=== PATIENT | female | born 1970 | race Caucasian/White ===

== ENCOUNTER 2019-06-17 13:11 | Emergency (ER) | payer MEDICARE, MEDICAID, SELFPAY ==
[2019-06-17 13:24] VITALS: BP 181/88; PULSE 103; RESP 18; TEMP 36.9; O2SAT 97; BMI 27.2
--- NOTE | 2019-06-17 14:11 | PC.NURSE ---
Patient declines POC glucose.
[2019-06-17 14:20] LABS: Add Manual Diff / Slide Review NO; Basophils Absolute Auto 0 /uL (0-100); Basophils Percent Auto 0.2 % (0-2); Eosinophils Absolute Auto 0 /uL (0-450); Hematocrit 39.5 % (36-46); Hemoglobin 13.6 g/dL (12.0-16.0); Lymphocytes Absolute Auto 1400 /uL (1100-4500); Lymphocytes Percent Auto 18.1 % (25-40); Mean Corpuscular HGB Conc 34.4 % (30-36); Mean Corpuscular Hemoglobin 31.8 PG (26-34); Mean Corpuscular Volume 92.4 fL (80-100); Monocytes Absolute Auto 500 /uL (0-900); Monocytes Percent Auto 6.4 % (3-14); Neutrophils Absolute Auto 5900 /uL (1500-7000); Neutrophils Percent Auto 75.3 % (50-75); Platelet Count 258 X10^3/uL (150-400); Red Blood Cell Count 4.27 X10^6/uL (4.0-5.2); Red Cell Distribution Width 13.1 % (11.6-14.8); White Blood Cell Count 7.8 X10^3/uL (4.5-11.0)
[2019-06-17 14:25] LABS: Alanine Aminotransferase 14 IU/L (<35); Albumin 4.1 g/dL (3.5-5.0); Albumin Globulin Ratio 1.4 (1.0-2.8); Alkaline Phosphatase 86 U/L (38-126); Aspartate Aminotransferase 19 IU/L (14-36); Bilirubin Total 0.5 mg/dL (0.2-1.3); Blood Urea Nitrogen 6 mg/dL (7-17); Calcium 9.4 mg/dL (8.4-10.2); Carbon Dioxide 22 mmol/L (22-32); Chloride 107 mmol/L (98-107); Estimated Glomerular Filt Rate > 60.0 mL/min (>60); Ethanol (ETOH) < 10 mg/dL; Glucose 116 mg/dL (70-100); HEMOLYSIS < 15 (0-50); Potassium 3.6 mmol/L (3.4-5.1); Sodium 141 mmol/L (137-145); Total Protein 7.1 g/dL (6.3-8.2)
--- NOTE | 2019-06-17 14:28 | ED_ITS ---
HPI - Neck Pain/Injury <Earl Mckeon DO - Last Filed: 06/17/19 20:00> General Chief Complaint: Neck Pain/Injury Stated Complaint: Head and neck pain Time Seen by Provider: 06/17/19 13:12 Source: EMS Mode of arrival: EMS Limitations: no limitations History of Present Illness HPI Narrative: 49-year-old female with developmental delay and schizophrenia presents by EMS for evaluation at the request of her managing facility. The patient has had episodes of refusing to take her medications and apparently earlier today was found wandering in a local store. The patient has no current complaints and has been very calm and comfortable with the paramedics. She was recently admitted at [facility] for attempted stabilization of her medications as she was (per the staff) acting nonsensically and refusing to take her medications. She has had no fever or chills. She has no vomiting or diarrhea. She has no complaints of dizziness or lightheadedness. She does have a chronic history of right-sided neck pain and states that on occasion it is hurting she denies any falls or injuries MD complaint: neck pain Onset (ago): day(s) Place: home Radiation: right lateral Duration: intermittent and now resolved Relieving factors: none Exacerbating factors: none Associated symptoms: none Treatments prior to arrival: none Related Data Home Medications Medication Instructions Recorded Confirmed clozapine 25 mg PO TID 06/18/19 06/18/19 clozapine 100 mg PO TID 06/18/19 06/18/19 Review of Systems <DO Colette Gaytan Last Filed: 06/17/19 20:00> Constitutional Constitutional: Denies chills, Denies fatigue, Denies fever(s), Denies frequent falls, Denies lethargy and Denies weakness Eyes Eyes: Denies change in vision, Denies eye discharge, Denies irritation and Denies loss of vision ENT Ears, Nose, Mouth, and Throat: Denies change in voice, Denies dizziness, Reports neck pain, Denies sore throat and Denies throat swelling Cardiovascular Cardiovascular: Denies chest pain, Denies irregular heart rhythm, Denies lightheadedness, Denies palpitations, Denies dyspnea, Denies dyspnea on exertion and Denies orthopnea Respiratory Respiratory: Denies cough, Denies dyspnea, Denies dyspnea on exertion and Denies wheezing Gastrointestinal Gastrointestinal: Denies abdominal pain, Denies change in bowel habits, Denies diarrhea, Denies nausea and Denies vomiting Genitourinary Genitourinary: Denies hematuria, Denies flank pain, Denies urinary incontinence and Denies urinary urgency Musculoskeletal Musculoskeletal: Denies back pain, Denies muscle weakness, Reports neck pain, Denies numbness and Denies tingling Integumentary/Breasts Skin/Breast: Denies pruritus, Denies erythema, Denies rash and Denies wounds Neurologic Neurologic: Denies behavioral changes, Denies confusion, Denies dizziness, Denies frequent falls, Denies loss of vision, Denies numbness, Denies tingling and Denies weakness Psychiatric Psychiatric: Denies anxiety, Denies behavioral changes, Denies confusion, Denies depression, Denies homicidal ideation and Denies suicidal ideation Endocrine Endocrine: Denies fatigue, Denies flushing and Denies palpitations Hematologic/Lymphatic Hematologic/Lymphatic: Denies easy bruising Allergic/Immunologic Allergic/Immunologic: Denies urticaria, Denies throat swelling and Denies wheezing Patient History <Earl Mckeon DO - Last Filed: 06/17/19 20:00> Medical History (Updated 06/18/19 @ 18:50 by Josselyn Joyce DO) alcohol syndrome (Acute) PTSD (post-traumatic stress disorder) (Acute) Schizoaffective disorder (Acute) Torticollis (Acute) Social History Smoking Status: Never smoker Smoking Status: Never smoker alcohol intake frequency: holidays/special occasions only Substance Use Type: does not use Exam <Earl Mckeon DO - Last Filed: 06/17/19 20:00> Narrative Exam Narrative: GENERAL: [49] year old patient appears stated age. Well- nourished, well-developed patient, in no obvious distress. SLow but accurate responses HEAD: Atraumatic. Normocephalic. EYES: Pupils equal round and reactive. Extraocular motions intact. No scleral icterus. No injection or drainage. ENT: Nose without bleeding, purulent drainage. Throat without erythema, tonsillar hypertrophy or exudate. Airway patent. NECK: Trachea midline. Non tender CARDIOVASCULAR: Regular rate and rhythm without murmurs, gallops, or rubs. RESPIRATORY: Clear to auscultation. Breath sounds equal bilaterally. No wheezes, rales, or rhonchi. GASTROINTESTINAL: Abdomen soft, non-tender, nondistended. EXTREMITIES: No edema or joint tenderness. BACK: Nontender without deformity or crepitance. No flank tenderness. NEURO: AOx3. SKIN: No rash or erythema of visible areas Initial Vital Signs Initial Vital Signs: Vital Signs Temperature 98.4 F 06/17/19 13:24 Pulse Rate 103 H 06/17/19 13:24 Respiratory Rate 18 06/17/19 13:24 Blood Pressure 181/88 H 06/17/19 13:24 Pulse Oximetry 97 06/17/19 13:24 <Madelyn Hutton MD - Last Filed: 06/18/19 01:19> Initial Vital Signs Initial Vital Signs: Vital Signs Temperature 98.4 F 06/17/19 13:24 Pulse Rate 103 H 06/17/19 13:24 Respiratory Rate 18 06/17/19 13:24 Blood Pressure 181/88 H 06/17/19 13:24 Pulse Oximetry 97 06/17/19 13:24 <Josselyn Joyce DO - Last Filed: 06/19/19 07:43> Initial Vital Signs Initial Vital Signs: Vital Signs Temperature 98.4 F 06/17/19 13:24 Pulse Rate 103 H 06/17/19 13:24 Respiratory Rate 18 06/17/19 13:24 Blood Pressure 181/88 H 06/17/19 13:24 Pulse Oximetry 97 06/17/19 13:24 <Stuart Helm DO - Last Filed: 06/19/19 03:38> Initial Vital Signs Initial Vital Signs: Vital Signs Temperature 98.4 F 06/17/19 13:24 Pulse Rate 103 H 06/17/19 13:24 Respiratory Rate 18 06/17/19 13:24 Blood Pressure 181/88 H 06/17/19 13:24 Pulse Oximetry 97 06/17/19 13:24 Course <Earl Mckeon DO - Last Filed: 06/17/19 20:00> Course Course Narrative: Patient is resting comfortably and denies any pain, suicidal or homicidal ideations. We are attempting to obtain her home medications as her antipsychotic is not available at our pharmacy. We have received a call from the patient's advocate and she has not a candidate for involuntary psychiatric admission at this point time, will likely keep overnight and have an evaluation by HOME VISITS NURSE in the morning. This patient has been signed out to Dr. Hutton for [facility] management Orders Ordered: Stored In Pharmacy 0 each PO . [facility] Clozapine 125 Mg 125 mg PO TID [facility] Last Admin: 06/18/19 21:17 Dose: 125 mg Documented by: Admin: 06/18/19 21:17 Dose: Not Given Documented by: Admin: 06/18/19 13:32 Dose: 125 mg Documented by: CPRUITT Vital Signs Vital signs: Vital Signs - 8 hr 06/19/19 00:08 Temperature 98.1 F Pulse Rate 100 H Respiratory Rate 16 Blood Pressure [Left Arm] 137/86 Pulse Oximetry 96 <Madelyn Hutton MD - Last Filed: 06/18/19 01:19> Course Course Narrative: 06/17/2019 20:00 Care is assumed. Patient has a diagnosis of alcohol syndrome, schizoaffective disorder and PTSD. Apparently was living in a group family home and was acting out with difficulties medicating her. She was recently at [facility] in the were unable to find additional placement for her. Previously she had been on clozapine 100 mg in the morning 200 mg in the evening. On June 15 this was shifted to clozapine 125 mg 3 times a day. The group family home does have her home meds and will make them available for us to administer. We do not currently have clozapine on the formulary at [facility]. Repeat medical records are obtained and chart is updated. Will need social work to again get involved tomorrow to help find placement for this young woman. She has been quite and cooperative during the evening Orders Ordered: Stored In Pharmacy 0 each PO . [facility] Clozapine 125 Mg 125 mg PO TID [facility] Last Admin: 06/18/19 21:17 Dose: 125 mg Documented by: Admin: 06/18/19 21:17 Dose: Not Given Documented by: Admin: 06/18/19 13:32 Dose: 125 mg Documented by: CPRUITT Vital Signs Vital signs: Vital Signs - 8 hr 06/19/19 00:08 Temperature 98.1 F Pulse Rate 100 H Respiratory Rate 16 Blood Pressure [Left Arm] 137/86 Pulse Oximetry 96 <Josselyn Joyce DO - Last Filed: 06/19/19 07:43> Course Course Narrative: Patient signed out to myself by Dr. Hutton while awaiting further social work. senior living has her home medication and is supposed to be bringing it in for patient to take. Patient was evaluated by myself. She is cooperative at this time. States she has a little bit of shoulder pain but defers anything for pain medication states she also has a little bit of pain with urination. Urine was obtained yesterday was negative with no signs of infection. She describes being at [facility] last week and having straight catheterization which caused her initial discomfort. Patient is aware that her medication is supposed to be coming from home today and is comfortable taking it. We discussed if she would like anything for pain to let us know patient seems comfortable with this plan. She is also aware that social work is supposed to re-evaluate today. Social work saw patient. Spoke with guardian as well as caregivers plan is for patient to return if she is now taking her medication she does not have any suicidal ideation she has been cooperative the department without issues. Car egivers are coming to pick the patient up today. She is medically cleared otherwise. Patient caregivers are not available till 8am. They are planning to picker and sorter load and unload patient this morning around 8am. Orders Ordered: Stored In Pharmacy 0 each PO . [facility] Clozapine 125 Mg 125 mg PO TID [facility] Last Admin: 06/18/19 21:17 Dose: 125 mg Documented by: Admin: 06/18/19 21:17 Dose: Not Given Documented by: Admin: 06/18/19 13:32 Dose: 125 mg Documented by: KATHLEEN Vital Signs Vital signs: Vital Signs - 8 hr 06/19/19 00:08 Temperature 98.1 F Pulse Rate 100 H Respiratory Rate 16 Blood Pressure [Left Arm] 137/86 Pulse Oximetry 96 <Stuart Helm DO - Last Filed: 06/19/19 03:38> Orders Ordered: Stored In Pharmacy 0 each PO . [facility] Clozapine 125 Mg 125 mg PO TID [facility] Last Admin: 06/18/19 21:17 Dose: 125 mg Documented by: Admin: 06/18/19 21:17 Dose: Not Given Documented by: Admin: 06/18/19 13:32 Dose: 125 mg Documented by: CPRUITT Vital Signs Vital signs: Vital Signs - 8 hr 06/19/19 00:08 Temperature 98.1 F Pulse Rate 100 H Respiratory Rate 16 Blood Pressure [Left Arm] 137/86 Pulse Oximetry 96 MDM - Neck Pain/Injury <Earl Mckeon DO - Last Filed: 06/17/19 20:00> Lab Data Result diagrams: 06/17/19 14:07 06/17/19 14:07 Labs: Lab Results 06/17/19 06/17/19 06/17/19 Range/Units 13:40 13:40 14:07 WBC 7.8 (4.5-11.0) X10^3/uL RBC 4.27 (4.0-5.2) X10^6/uL Hgb 13.6 (12.0-16.0) g/dL Hct 39.5 (36-46) % MCV 92.4 (80-100) fL MCH 31.8 (26-34) PG MCHC 34.4 (30-36) % RDW 13.1 (11.6-14.8) % Plt Count 258 (150-400) X10^3/uL Neut % (Auto) 75.3 H (50-75) % Lymph % (Auto) 18.1 L (25-40) % [place] % (Auto) 6.4 (3-14) % Eos % (Auto) 0.0 L (2-4) % Baso % (Auto) 0.2 (0-2) % Neut # (Auto) 5900 (0115-6417) /uL Lymph # (Auto) 1400 (4992-1947) /uL [place] # (Auto) 500 (0-900) /uL Eos # (Auto) 0 (0-450) /uL Baso # (Auto) 0 (0-100) /uL Sodium (137-145) mmol/L Potassium (3.4-5.1) mmol/L Chloride (98-107) mmol/L Carbon Dioxide (22-32) mmol/L BUN (7-17) mg/dL Creatinine (0.52-1.04) mg/dL Estimated GFR (>60) mL/min BUN/Creatinine Ratio (6-22) Glucose (70-100) mg/dL Calcium (8.4-10.2) mg/dL Total Bilirubin (0.2-1.3) mg/dL AST (14-36) IU/L ALT (<35) IU/L Alkaline Phosphatase (38-126) U/L Total Protein (6.3-8.2) g/dL Albumin (3.5-5.0) g/dL Globulin (1.7-4.1) g/dL Albumin/Globulin Ratio (1.0-2.8) TSH (0.47-4.68) uIU/mL Urine RBC None seen (0-5/HPF) Urine WBC 1-5/hpf (0-5/HPF) Ur Squamous Epith Cells 5-10 /hpf H (0-5/HPF) Amorphous Sediment 1+ Urine Bacteria Few (2-10) H (None) Ur Culture Indicated? Cult not indicated U Opiates 300ng/mL cut Negative (Negative) Ur Oxycodone Screen Negative (Negative) Urine Methadone Screen Negative (Negative) Ur Barbiturates Screen Negative (Negative) U Tricyclic Antidepress Negative (Negative) Ur Phencyclidine Scrn Negative (Negative) Ur Amphetamines Screen Negative (Negative) U Methamphetamines Scrn Negative (Negative) Ur MDMA Scrn (Ecstasy) Negative (Negative) U Benzodiazepines Scrn Negative (Negative) Urine Cocaine Screen Negative (Negative) U Marijuana (THC) Screen Negative (Negative) Ethyl Alcohol ( - 10) mg/dL 06/17/19 06/17/19 Range/Units 14:07 14:07 WBC (4.5-11.0) X10^3/uL RBC (4.0-5.2) X10^6/uL Hgb (12.0-16.0) g/dL Hct (36-46) % MCV (80-100) fL MCH (26-34) PG MCHC (30-36) % RDW (11.6-14.8) % Plt Count (150-400) X10^3/uL Neut % (Auto) (50-75) % Lymph % (Auto) (25-40) % [place] % (Auto) (3-14) % Eos % (Auto) (2-4) % Baso % (Auto) (0-2) % Neut # (Auto) (9190-7271) /uL Lymph # (Auto) (0879-4813) /uL [place] # (Auto) (0-900) /uL Eos # (Auto) (0-450) /uL Baso # (Auto) (0-100) /uL Sodium 141 (137-145) mmol/L Potassium 3.6 (3.4-5.1) mmol/L Chloride 107 (98-107) mmol/L Carbon Dioxide 22 (22-32) mmol/L BUN 6 L (7-17) mg/dL Creatinine 0.60 (0.52-1.04) mg/dL Estimated GFR > 60.0 (>60) mL/min BUN/Creatinine Ratio 10.0 (6-22) Glucose 116 H (70-100) mg/dL Calcium 9.4 (8.4-10.2) mg/dL Total Bilirubin 0.5 (0.2-1.3) mg/dL AST 19 (14-36) IU/L ALT 14 (<35) IU/L Alkaline Phosphatase 86 (38-126) U/L Total Protein 7.1 (6.3-8.2) g/dL Albumin 4.1 (3.5-5.0) g/dL Globulin 3.0 (1.7-4.1) g/dL Albumin/Globulin Ratio 1.4 (1.0-2.8) TSH 0.92 (0.47-4.68) uIU/mL Urine RBC (0-5/HPF) Urine WBC (0-5/HPF) Ur Squamous Epith Cells (0-5/HPF) Amorphous Sediment Urine Bacteria (None) Ur Culture Indicated? U Opiates 300ng/mL cut (Negative) Ur Oxycodone Screen (Negative) Urine Methadone Screen (Negative) Ur Barbiturates Screen (Negative) U Tricyclic Antidepress (Negative) Ur Phencyclidine Scrn (Negative) Ur Amphetamines Screen (Negative) U Methamphetamines Scrn (Negative) Ur MDMA Scrn (Ecstasy) (Negative) U Benzodiazepines Scrn (Negative) Urine Cocaine Screen (Negative) U Marijuana (THC) Screen (Negative) Ethyl Alcohol < 10 ( - 10) mg/dL Urine Dip Bedside Urine Glucose Negative Bedside Urine Bilirubin - Negative Bedside Urine Ketone +++ 80 Bedside Urine Occult Blood - Negative Bedside Urine Protein - Negative Bedside Urine Urobilinogen - Negative Bedside Urine Nitrite - Negative Bedside Urine Leukocytes - Negative Esterase <Madelyn Hutton MD - Last Filed: 06/18/19 01:19> Medical Records Attestation: I reviewed the patient's medical records. Lab Data Attestation: I reviewed the patient's lab results. Labs: Lab Results 06/17/19 06/17/19 06/17/19 Range/Units 13:40 13:40 14:07 WBC 7.8 (4.5-11.0) X10^3/uL RBC 4.27 (4.0-5.2) X10^6/uL Hgb 13.6 (12.0-16.0) g/dL Hct 39.5 (36-46) % MCV 92.4 (80-100) fL MCH 31.8 (26-34) PG MCHC 34.4 (30-36) % RDW 13.1 (11.6-14.8) % Plt Count 258 (150-400) X10^3/uL Neut % (Auto) 75.3 H (50-75) % Lymph % (Auto) 18.1 L (25-40) % [place] % (Auto) 6.4 (3-14) % Eos % (Auto) 0.0 L (2-4) % Baso % (Auto) 0.2 (0-2) % Neut # (Auto) 5900 (4105-3174) /uL Lymph # (Auto) 1400 (9428-3878) /uL [place] # (Auto) 500 (0-900) /uL Eos # (Auto) 0 (0-450) /uL Baso # (Auto) 0 (0-100) /uL Sodium (137-145) mmol/L Potassium (3.4-5.1) mmol/L Chloride (98-107) mmol/L Carbon Dioxide (22-32) mmol/L BUN (7-17) mg/dL Creatinine (0.52-1.04) mg/dL Estimated GFR (>60) mL/min BUN/Creatinine Ratio (6-22) Glucose (70-100) mg/dL Calcium (8.4-10.2) mg/dL Total Bilirubin (0.2-1.3) mg/dL AST (14-36) IU/L ALT (<35) IU/L Alkaline Phosphatase (38-126) U/L Total Protein (6.3-8.2) g/dL Albumin (3.5-5.0) g/dL Globulin (1.7-4.1) g/dL Albumin/Globulin Ratio (1.0-2.8) TSH (0.47-4.68) uIU/mL Urine RBC None seen (0-5/HPF) Urine WBC 1-5/hpf (0-5/HPF) Ur Squamous Epith Cells 5-10 /hpf H (0-5/HPF) Amorphous Sediment 1+ Urine Bacteria Few (2-10) H (None) Ur Culture Indicated? Cult not indicated U Opiates 300ng/mL cut Negative (Negative) Ur Oxycodone Screen Negative (Negative) Urine Methadone Screen Negative (Negative) Ur Barbiturates Screen Negative (Negative) U Tricyclic Antidepress Negative (Negative) Ur Phencyclidine Scrn Negative (Negative) Ur Amphetamines Screen Negative (Negative) U Methamphetamines Scrn Negative (Negative) Ur MDMA Scrn (Ecstasy) Negative (Negative) U Benzodiazepines Scrn Negative (Negative) Urine Cocaine Screen Negative (Negative) U Marijuana (THC) Screen Negative (Negative) Ethyl Alcohol ( - 10) mg/dL 06/17/19 06/17/19 Range/Units 14:07 14:07 WBC (4.5-11.0) X10^3/uL RBC (4.0-5.2) X10^6/uL Hgb (12.0-16.0) g/dL Hct (36-46) % MCV (80-100) fL MCH (26-34) PG MCHC (30-36) % RDW (11.6-14.8) % Plt Count (150-400) X10^3/uL Neut % (Auto) (50-75) % Lymph % (Auto) (25-40) % [place] % (Auto) (3-14) % Eos % (Auto) (2-4) % Baso % (Auto) (0-2) % Neut # (Auto) (2167-6584) /uL Lymph # (Auto) (1872-8392) /uL [place] # (Auto) (0-900) /uL Eos # (Auto) (0-450) /uL Baso # (Auto) (0-100) /uL Sodium 141 (137-145) mmol/L Potassium 3.6 (3.4-5.1) mmol/L Chloride 107 (98-107) mmol/L Carbon Dioxide 22 (22-32) mmol/L BUN 6 L (7-17) mg/dL Creatinine 0.60 (0.52-1.04) mg/dL Estimated GFR > 60.0 (>60) mL/min BUN/Creatinine Ratio 10.0 (6-22) Glucose 116 H (70-100) mg/dL Calcium 9.4 (8.4-10.2) mg/dL Total Bilirubin 0.5 (0.2-1.3) mg/dL AST 19 (14-36) IU/L ALT 14 (<35) IU/L Alkaline Phosphatase 86 (38-126) U/L Total Protein 7.1 (6.3-8.2) g/dL Albumin 4.1 (3.5-5.0) g/dL Globulin 3.0 (1.7-4.1) g/dL Albumin/Globulin Ratio 1.4 (1.0-2.8) TSH 0.92 (0.47-4.68) uIU/mL Urine RBC (0-5/HPF) Urine WBC (0-5/HPF) Ur Squamous Epith Cells (0-5/HPF) Amorphous Sediment Urine Bacteria (None) Ur Culture Indicated? U Opiates 300ng/mL cut (Negative) Ur Oxycodone Screen (Negative) Urine Methadone Screen (Negative) Ur Barbiturates Screen (Negative) U Tricyclic Antidepress (Negative) Ur Phencyclidine Scrn (Negative) Ur Amphetamines Screen (Negative) U Methamphetamines Scrn (Negative) Ur MDMA Scrn (Ecstasy) (Negative) U Benzodiazepines Scrn (Negative) Urine Cocaine Screen (Negative) U Marijuana (THC) Screen (Negative) Ethyl Alcohol < 10 ( - 10) mg/dL Urine Dip Bedside Urine Glucose Negative Bedside Urine Bilirubin - Negative Bedside Urine Ketone +++ 80 Bedside Urine Occult Blood - Negative Bedside Urine Protein - Negative Bedside Urine Urobilinogen - Negative Bedside Urine Nitrite - Negative Bedside Urine Leukocytes - Negative Esterase <Josselyn Joyce DO - Last Filed: 06/19/19 07:43> Lab Data Attestation: I reviewed the patient's lab results. Labs: Lab Results 06/17/19 06/17/19 06/17/19 Range/Units 13:40 13:40 14:07 WBC 7.8 (4.5-11.0) X10^3/uL RBC 4.27 (4.0-5.2) X10^6/uL Hgb 13.6 (12.0-16.0) g/dL Hct 39.5 (36-46) % MCV 92.4 (80-100) fL MCH 31.8 (26-34) PG MCHC 34.4 (30-36) % RDW 13.1 (11.6-14.8) % Plt Count 258 (150-400) X10^3/uL Neut % (Auto) 75.3 H (50-75) % Lymph % (Auto) 18.1 L (25-40) % [place] % (Auto) 6.4 (3-14) % Eos % (Auto) 0.0 L (2-4) % Baso % (Auto) 0.2 (0-2) % Neut # (Auto) 5900 (1658-6032) /uL Lymph # (Auto) 1400 (7210-9246) /uL [place] # (Auto) 500 (0-900) /uL Eos # (Auto) 0 (0-450) /uL Baso # (Auto) 0 (0-100) /uL Sodium (137-145) mmol/L Potassium (3.4-5.1) mmol/L Chloride (98-107) mmol/L Carbon Dioxide (22-32) mmol/L BUN (7-17) mg/dL Creatinine (0.52-1.04) mg/dL Estimated GFR (>60) mL/min BUN/Creatinine Ratio (6-22) Glucose (70-100) mg/dL Calcium (8.4-10.2) mg/dL Total Bilirubin (0.2-1.3) mg/dL AST (14-36) IU/L ALT (<35) IU/L Alkaline Phosphatase (38-126) U/L Total Protein (6.3-8.2) g/dL Albumin (3.5-5.0) g/dL Globulin (1.7-4.1) g/dL Albumin/Globulin Ratio (1.0-2.8) TSH (0.47-4.68) uIU/mL Urine RBC None seen (0-5/HPF) Urine WBC 1-5/hpf (0-5/HPF) Ur Squamous Epith Cells 5-10 /hpf H (0-5/HPF) Amorphous Sediment 1+ Urine Bacteria Few (2-10) H (None) Ur Culture Indicated? Cult not indicated U Opiates 300ng/mL cut Negative (Negative) Ur Oxycodone Screen Negative (Negative) Urine Methadone Screen Negative (Negative) Ur Barbiturates Screen Negative (Negative) U Tricyclic Antidepress Negative (Negative) Ur Phencyclidine Scrn Negative (Negative) Ur Amphetamines Screen Negative (Negative) U Methamphetamines Scrn Negative (Negative) Ur MDMA Scrn (Ecstasy) Negative (Negative) U Benzodiazepines Scrn Negative (Negative) Urine Cocaine Screen Negative (Negative) U Marijuana (THC) Screen Negative (Negative) Ethyl Alcohol ( - 10) mg/dL 06/17/19 06/17/19 Range/Units 14:07 14:07 WBC (4.5-11.0) X10^3/uL RBC (4.0-5.2) X10^6/uL Hgb (12.0-16.0) g/dL Hct (36-46) % MCV (80-100) fL MCH (26-34) PG MCHC (30-36) % RDW (11.6-14.8) % Plt Count (150-400) X10^3/uL Neut % (Auto) (50-75) % Lymph % (Auto) (25-40) % [place] % (Auto) (3-14) % Eos % (Auto) (2-4) % Baso % (Auto) (0-2) % Neut # (Auto) (5761-2794) /uL Lymph # (Auto) (9280-6029) /uL [place] # (Auto) (0-900) /uL Eos # (Auto) (0-450) /uL Baso # (Auto) (0-100) /uL Sodium 141 (137-145) mmol/L Potassium 3.6 (3.4-5.1) mmol/L Chloride 107 (98-107) mmol/L Carbon Dioxide 22 (22-32) mmol/L BUN 6 L (7-17) mg/dL Creatinine 0.60 (0.52-1.04) mg/dL Estimated GFR > 60.0 (>60) mL/min BUN/Creatinine Ratio 10.0 (6-22) Glucose 116 H (70-100) mg/dL Calcium 9.4 (8.4-10.2) mg/dL Total Bilirubin 0.5 (0.2-1.3) mg/dL AST 19 (14-36) IU/L ALT 14 (<35) IU/L Alkaline Phosphatase 86 (38-126) U/L Total Protein 7.1 (6.3-8.2) g/dL Albumin 4.1 (3.5-5.0) g/dL Globulin 3.0 (1.7-4.1) g/dL Albumin/Globulin Ratio 1.4 (1.0-2.8) TSH 0.92 (0.47-4.68) uIU/mL Urine RBC (0-5/HPF) Urine WBC (0-5/HPF) Ur Squamous Epith Cells (0-5/HPF) Amorphous Sediment Urine Bacteria (None) Ur Culture Indicated? U Opiates 300ng/mL cut (Negative) Ur Oxycodone Screen (Negative) Urine Methadone Screen (Negative) Ur Barbiturates Screen (Negative) U Tricyclic Antidepress (Negative) Ur Phencyclidine Scrn (Negative) Ur Amphetamines Screen (Negative) U Methamphetamines Scrn (Negative) Ur MDMA Scrn (Ecstasy) (Negative) U Benzodiazepines Scrn (Negative) Urine Cocaine Screen (Negative) U Marijuana (THC) Screen (Negative) Ethyl Alcohol < 10 ( - 10) mg/dL Urine Dip Bedside Urine Glucose Negative Bedside Urine Bilirubin - Negative Bedside Urine Ketone +++ 80 Bedside Urine Occult Blood - Negative Bedside Urine Protein - Negative Bedside Urine Urobilinogen - Negative Bedside Urine Nitrite - Negative Bedside Urine Leukocytes - Negative Esterase <Stuart Helm, DO - Last Filed: 06/19/19 03:38> Lab Data Labs: Lab Results 06/17/19 06/17/19 06/17/19 Range/Units 13:40 13:40 14:07 WBC 7.8 (4.5-11.0) X10^3/uL RBC 4.27 (4.0-5.2) X10^6/uL Hgb 13.6 (12.0-16.0) g/dL Hct 39.5 (36-46) % MCV 92.4 (80-100) fL MCH 31.8 (26-34) PG MCHC 34.4 (30-36) % RDW 13.1 (11.6-14.8) % Plt Count 258 (150-400) X10^3/uL Neut % (Auto) 75.3 H (50-75) % Lymph % (Auto) 18.1 L (25-40) % [place] % (Auto) 6.4 (3-14) % Eos % (Auto) 0.0 L (2-4) % Baso % (Auto) 0.2 (0-2) % Neut # (Auto) 5900 (0887-1912) /uL Lymph # (Auto) 1400 (3153-3883) /uL [place] # (Auto) 500 (0-900) /uL Eos # (Auto) 0 (0-450) /uL Baso # (Auto) 0 (0-100) /uL Sodium (137-145) mmol/L Potassium (3.4-5.1) mmol/L Chloride (98-107) mmol/L Carbon Dioxide (22-32) mmol/L BUN (7-17) mg/dL Creatinine (0.52-1.04) mg/dL Estimated GFR (>60) mL/min BUN/Creatinine Ratio (6-22) Glucose (70-100) mg/dL Calcium (8.4-10.2) mg/dL Total Bilirubin (0.2-1.3) mg/dL AST (14-36) IU/L ALT (<35) IU/L Alkaline Phosphatase (38-126) U/L Total Protein (6.3-8.2) g/dL Albumin (3.5-5.0) g/dL Globulin (1.7-4.1) g/dL Albumin/Globulin Ratio (1.0-2.8) TSH (0.47-4.68) uIU/mL Urine RBC None seen (0-5/HPF) Urine WBC 1-5/hpf (0-5/HPF) Ur Squamous Epith Cells 5-10 /hpf H (0-5/HPF) Amorphous Sediment 1+ Urine Bacteria Few (2-10) H (None) Ur Culture Indicated? Cult not indicated U Opiates 300ng/mL cut Negative (Negative) Ur Oxycodone Screen Negative (Negative) Urine Methadone Screen Negative (Negative) Ur Barbiturates Screen Negative (Negative) U Tricyclic Antidepress Negative (Negative) Ur Phencyclidine Scrn Negative (Negative) Ur Amphetamines Screen Negative (Negative) U Methamphetamines Scrn Negative (Negative) Ur MDMA Scrn (Ecstasy) Negative (Negative) U Benzodiazepines Scrn Negative (Negative) Urine Cocaine Screen Negative (Negative) U Marijuana (THC) Screen Negative (Negative) Ethyl Alcohol ( - 10) mg/dL 06/17/19 06/17/19 Range/Units 14:07 14:07 WBC (4.5-11.0) X10^3/uL RBC (4.0-5.2) X10^6/uL Hgb (12.0-16.0) g/dL Hct (36-46) % MCV (80-100) fL MCH (26-34) PG MCHC (30-36) % RDW (11.6-14.8) % Plt Count (150-400) X10^3/uL Neut % (Auto) (50-75) % Lymph % (Auto) (25-40) % [place] % (Auto) (3-14) % Eos % (Auto) (2-4) % Baso % (Auto) (0-2) % Neut # (Auto) (1181-2007) /uL Lymph # (Auto) (1416-6189) /uL [place] # (Auto) (0-900) /uL Eos # (Auto) (0-450) /uL Baso # (Auto) (0-100) /uL Sodium 141 (137-145) mmol/L Potassium 3.6 (3.4-5.1) mmol/L Chloride 107 (98-107) mmol/L Carbon Dioxide 22 (22-32) mmol/L BUN 6 L (7-17) mg/dL Creatinine 0.60 (0.52-1.04) mg/dL Estimated GFR > 60.0 (>60) mL/min BUN/Creatinine Ratio 10.0 (6-22) Glucose 116 H (70-100) mg/dL Calcium 9.4 (8.4-10.2) mg/dL Total Bilirubin 0.5 (0.2-1.3) mg/dL AST 19 (14-36) IU/L ALT 14 (<35) IU/L Alkaline Phosphatase 86 (38-126) U/L Total Protein 7.1 (6.3-8.2) g/dL Albumin 4.1 (3.5-5.0) g/dL Globulin 3.0 (1.7-4.1) g/dL Albumin/Globulin Ratio 1.4 (1.0-2.8) TSH 0.92 (0.47-4.68) uIU/mL Urine RBC (0-5/HPF) Urine WBC (0-5/HPF) Ur Squamous Epith Cells (0-5/HPF) Amorphous Sediment Urine Bacteria (None) Ur Culture Indicated? U Opiates 300ng/mL cut (Negative) Ur Oxycodone Screen (Negative) Urine Methadone Screen (Negative) Ur Barbiturates Screen (Negative) U Tricyclic Antidepress (Negative) Ur Phencyclidine Scrn (Negative) Ur Amphetamines Screen (Negative) U Methamphetamines Scrn (Negative) Ur MDMA Scrn (Ecstasy) (Negative) U Benzodiazepines Scrn (Negative) Urine Cocaine Screen (Negative) U Marijuana (THC) Screen (Negative) Ethyl Alcohol < 10 ( - 10) mg/dL Urine Dip Bedside Urine Glucose Negative Bedside Urine Bilirubin - Negative Bedside Urine Ketone +++ 80 Bedside Urine Occult Blood - Negative Bedside Urine Protein - Negative Bedside Urine Urobilinogen - Negative Bedside Urine Nitrite - Negative Bedside Urine Leukocytes - Negative Esterase MDM Narrative Medical decision making narrative: Dr Helm: Patient was turned over to me from Dr. joyce. Patient had been discharged by Dr. Joyce however due to social situation where caregivers are not available patient will remain in the emergency department overnight. Has been seen by social work. No lab tests pending. Patient has been stable overnight. Plan to discharge in the morning when caretakers available. Discharge Plan Departure Patient Disposition: Home Clinical Impression: Neck pain, Developmental disability Activity Restrictions/Additional Instructions: Follow up with primary care in the next several days for recheck. Continue home medications as prescribed. Return to ER for fevers, new or worsening symptoms, new agitation, aggressive behavior, suicidal ideation, persistent vomiting, chest pain shortness of breath or other new or concerning symptoms. Prescriptions: No Action clozapine 100 mg Tablet 100 mg PO TID RF: 0 clozapine 25 mg Tablet 25 mg PO TID RF: 0
[2019-06-17 15:04] LABS: Thyroid Stimulating Hormone 0.92 uIU/mL (0.47-4.68)
--- NOTE | 2019-06-17 16:08 | PC.NURSE ---
Legal guardian of Pt, [place] Sim, calls with information. Pt reportedly not taking clozaril because [facility] is supplying it in a different color. States Pt running around with no shirt on, for the neighbors to call the medics. States Pt associated with [facility], her primary doctor is Hunter Saldana of [place]. [place]'s phone number is Home [phone], Work [phone].
[2019-06-17 16:14] LABS: UR Morphine/Opiate cutoff 300 Negative (Negative); Ur Creatinine Normal (Normal); Ur Specific Gravity Normal (Normal); Urine Amphetamines Negative (Negative); Urine Barbiturates Negative (Negative); Urine Benzodiazepines Negative (Negative); Urine Cocaine Negative (Negative); Urine MDMA Negative (Negative); Urine Methadone Negative (Negative); Urine Methamphetamines Negative (Negative); Urine Oxycodone Negative (Negative); Urine Phencyclidine Negative (Negative); Urine Tetrahydrocannabinol Negative (Negative); Urine Tricyclic Antidepressant Negative (Negative); Urine pH Normal (Normal)
[2019-06-17 17:01] LABS: RBC Urine None Seen (0-5/HPF)
[2019-06-17 17:07] LABS: Amorphous Sediment Urine 1+; Bacteria Urine Few (2-10); Culture Indicated Urine Cult Not Indicated; Squamous Epithelial Cell Urine 5-10 /HPF (0-5/HPF); WBC Urine 1-5/HPF (0-5/HPF)
--- NOTE | 2019-06-17 19:51 | PC.NURSE ---
Recieved return call from [facility] [employer] assistant manager Nissa Arroyo. States that medics did not accept Pt's clozapine, so it was left at Pt's home. States she will bring it into ED tomorrow AM. States she will fax medical history, allergy info, and medication list to ED.
[2019-06-17 20:00] VITALS: BP 141/86; PULSE 75; RESP 16; O2SAT 98
[2019-06-18 00:47] VITALS: BP 144/73; PULSE 94; RESP 16; TEMP 37.1; O2SAT 98
[2019-06-18 04:49] VITALS: BP 158/87; PULSE 90; RESP 16; O2SAT 95
--- NOTE | 2019-06-18 06:41 | PC.NURSE ---
Pt noted with increasing anxiety this morning, calling out frequently, making requests that don't make sense, Can you turn off the smell? Pt assisted to bathroom, she brushed her teeth. Pt given warm blanket. Pt appears anxious, I don't want to , you know. I'm not ugly. I never murdered anyone. I don't think I did. Emotional support given, pt offered medication for anxiety or pain. No medicine, thank you.
[2019-06-18 08:09] VITALS: PULSE 107; RESP 16; O2SAT 98
[2019-06-18 10:32] VITALS: BP 131/90; PULSE 94; RESP 16; O2SAT 97
[2019-06-18] MEDS: CLOZAPINE 125 EACH PO ×2 (13:32→21:17)
--- NOTE | 2019-06-18 16:59 | PC.NURSE ---
Spoke with Nissa at the facility where patient currently resides. She stated the patients instability due to her non-compliance with her medication is the sole factor in her not being able to return to the facility. Nissa stated if the patient was stable and compliant with taking her medication then return to the facility was an option, but they had not been able to maintain the compliance with Bryanna. Informed Dr. Larson of above conversation.
--- NOTE | 2019-06-18 17:54 | CM.SWNOTE ---
Addendum entered by Tonya Louie R.N. 06/18/19 19:52: CM/RN called [facility] at [phone] and spoke with Rebecca- CM/RN was told that they do not have the ability to pick patient up tonight but that they can pick patient up and start services tomorrow morning with her at 8am. CM/RN called patients Guardian and was told by her that she can't take care of patient tonight until [facility] can resume care with patient tomorrow. CM/ RN updated ED staff and tracking board. That [facility] will pick patient up tomorrow morning 06/19/2019 at 8am. CM/RN left voice mail for patients Guardian and for patients DDA housing case manager. Tonya Louie RN. Original Note: CM/resident services coordinator note: EMR Reviewed: Patient is a 49 yr old developmental disabled Female. Patient was brought into the ED for Right Shoulder pain. Patient has HX of schizoaffective disorder, AFS, FES and PTSD. Patient was off her psychiatric medications for two days and was struggling with her in home caregivers with her behaviors and her refusing to take medications. CM/RN spoke with patient at the bedside and she was alert and orientedx2 patient struggled in identifying where she was or why she was in the hospital. Patient was call and appropriate during meeting. CM/RN spoke with patients DDA manager combination Tesha Monteiro [phone]. Patient has a Legal guardian who is her mother [place] [phone]. CM/RN received a copy of patients guardianship paperwork and CM/RN scanned it into the patients EMR. Spoke to patients Guardian- [place] and discussed patients status. Patients Guardian would like [facility] to be called and set up transport home with them that way the caregiver staff are there when patient get home. Cm/RN will contact [facility] about d/c of patient [phone] or [phone]. Tonya Louie RN GREY ROLL MAN - Instrument Maintenance Supervisor Assessment GREY ROLL MAN - Instrument Maintenance Supervisor Assessment Start: 06/18/19 17:38 Freq: Status: Active Protocol: Document 06/18/19 17:38 HS (Rec: 06/18/19 17:54 HS [id number]) GREY ROLL MAN/Instrument Maintenance Supervisor Assessment Time Spent with Patient Start date 06/18/19 Visit Start Time 16:30 End date 06/18/19 Visit End Time 17:25 Total time Care Management spent on 90 patient visit-in minutes Mental Health Screening Include Onset, Duration, Intensity Presenting Problem Patient presented to the ED due to shoulder pain. Patient currently lives alone and is develop mentally disabled and has caregivers through [facility]. Patient is currently set up with DDA- housing case manager Efren Monteiro [phone]- and Patents mother [place] is her legal guardian. Patient did not take her psychiatric medications for two day and started to struggle with her behaviors, Patients caregivers through [facility] brought her into the ED for evaluation due to pain in her shoulder and medication issues. Precipitating Event(s) Patient was without her psychiatric medication for two days and was having behavioral issues at home. Patient then started to refuse her medications and was brought to the ED. Patient has taken her home medications with out issue while here in the ED. Patient states she is not currently having thougths of suicide and denies Homicidal intent. Current Behavioral Health Provider(s) Patient current provider is Dr Alfie Pham, Provider, Ph. # Manuel Hood with [facility] in [facility]. Hx Mental Health and [employer] has dx of Dependency schizoaffective disorder, FAS, FES and PTSD. Psychiatric Hospitalizations (date(s)/ Patient has not had any location) Psychiatric hospitalizations Support System(s) patient has care giving services provided by [facility], DDA case management and Guardian -liam Lovelace Mental Status Orientation (Person/Place/Time) Patient was alert and oriented x2 patient was not able to tell me what brought her to the ED or the name of the hospital or its location Affect Calm and attentive Thought Processes (Fstpxes-Lhdvhhhd-Cegy patient is Developmentally Qseqdgtu-Oojjrcxh-Glsefxidod- disabled and was unable to Mucdgykfjvbtdr-Risvdqw-Vmbhxazeqefm- really be logical or detailed Thought Blocking) with her answers. CM/RN unsure if that is due to Developmental or mental status . Speech (Ruyfxq-Gbjq-Zdnzelc-Rapid-Soft- Normal Loud-Pressured) Motor (Jybjds-Ojhabvngc-Reoh-Other) slow Insight (Present-Partially Present- impaired Impaired) Impulse Control (Adequate-Impaired) adequate Memory (Ixtdqcvyo-Mutuog-Htmhtz, impaired Impaired-Intact) Concentration (Intact-Impaired) intact Attention (Intact-Impaired) intact Behavior (Appropriate-Inappropriate) appropriate Risk Assessment Suicidal Ideation (Plan) No Homicidal Ideation (Plan) No Intervention Intervention Patent is doing well with no signs of distress while here at the ED. Patient has taken her psychiatric medications while here without trouble. CM /RN will call patients Legal Guardian and work on patient returning home. CM/RN spoke with ED provider and CM/RN told there is no identifiable reason to attempt inpatient psychiatric stay currently since patient is taking medications, has no SI or homicidal ideation and has been behaving appropriately here in the ED.
--- NOTE | 2019-06-18 19:36 | PC.NURSE ---
report received from offgoing nurse. Social work in contact with timekeeper supervisor of [employer] who provides care at home to mariia. Care company refusing patient, patient to remain in ED until tomorrow. Social work anticipates discharge to home tomorrow morning.
[2019-06-19 00:08] VITALS: BP 137/86; PULSE 100; RESP 16; TEMP 36.7; O2SAT 96
--- NOTE | 2019-06-19 03:37 | PC.NURSE ---
patient resting on stretcher with eyes closed. Respirations observed.
--- NOTE | 2019-06-19 03:38 | PC.NURSE ---
Patient denies neck pain at this time. Patient states My neck is ok, do you have a tuna sandwich? Patient provided a tuna sandwich.
[2019-06-19] MEDS: CLOZAPINE 125 EACH PO (08:20)
[2019-06-19 08:25] VITALS: BP 137/85; PULSE 99; RESP 16; TEMP 36.7; O2SAT 95
== END 2019-06-19 09:07 | disposition home or self-care (01) ==
PROVIDERS: Emergency Medicine; Emergency Provider Emergency Medicine
DX: M54.2 Cervicalgia (principal); F89 Unspecified disorder of psychological development
CPT/HCPCS: 36415; 80053; 80305; 80320; 81003; 81015; 84443; 85025; 99283